=== PATIENT | female | born 1940 | race Caucasian/White ===

== ENCOUNTER 2019-09-19 12:18 | Emergency (ER) | payer MEDICARE ==
[~2019-09-19] VITALS: Ht 160 cm; Wt 84.8 kg
[~2019-09-19 12:18] MED LIST: ATORVASTATIN CA20 MG PO; BRILINTA90 MG PO; CYMBALTA30 MG PO; DEPAKOTE500 MG PO; DOXEPIN HCL25 MG PO; FUROSEMIDE40 MG PO; LITHIUM CARBON300 M2 PO; METOPROLOL SUCC25 MG PO
[2019-09-19 13:37] LABS: BASOPHILS # (AUTO) 0.1 (0.0-0.1); BASOPHILS % 0.8 % (0.0-1.0); EOSINOPHILS # (AUTO) 0.3 (0.0-0.4); EOSINOPHILS % 2.6 % (0.0-6.0); HEMATOCRIT 36.7 % (34.2-44.1); HEMOGLOBIN 11.7 g/dL (12.0-16.0); LYMPHOCYTES # (AUTO) 1.8 (1.0-3.2); MEAN CORPUSCULAR HGB CONC 31.9 g/dL (31-35); MEAN CORPUSCULAR VOLUME 90.8 fL (81-99); MONOCYTES % 8.2 % (4.4-11.3); NEUTROPHILS # (AUTO) 8.2 (2.1-6.9); NEUTROPHILS % 68.8 % (38.7-80.0); PLATELET COUNT 403 x10e3/uL (140-360); RED BLOOD COUNT 4.04 x10e6/uL (3.6-5.1); RED CELL DISTRIBUTION WIDTH 13.3 % (11.7-14.4)
[2019-09-19 13:49] LABS: INR 1.09; PROTHROMBIN TIME 14.4 seconds (11.9-14.5)
[2019-09-19 14:00] LABS: ALBUMIN 3.5 g/dL (3.5-5.0); ALBUMIN/GLOBULIN RATIO 0.8 (0.8-2.0); ANION GAP 15.6 mmol/L (8-16); CALCIUM 9.7 mg/dL (8.4-10.2); CREATININE, SERUM 1.68 mg/dL (0.57-1.11); MAGNESIUM 2.2 MG/DL (1.3-2.1); POTASSIUM 3.6 mmol/L (3.5-5.1)
[2019-09-19 14:00] LABS: BILIRUBIN,URINE NEGATIVE (NEGATIVE); CLARITY,URINE CLEAR (CLEAR); COLOR,URINE YELLOW (YELLOW); KETONES,URINE NEGATIVE (NEGATIVE); LEUKOCYTE ESTERASE ,URINE NEGATIVE (NEGATIVE); NITRITE,URINE NEGATIVE (NEGATIVE); PROTEIN,URINE DIPSTICK NEGATIVE (NEGATIVE); URINE UROBILINOGEN 0.2 mg/dL (0.2 - 1)
[2019-09-19 14:04] LABS: BACTERIA,URINE RARE /HPF; EPITHELIAL CELLS,URINE FEW /LPF; WBC,URINE (MAN) 0-5 /HPF (0-5)
[2019-09-19 14:05] LABS: HYALINE CASTS 0-1 (0-1)
--- NOTE | 2019-09-19 14:13 | Diagnostic Imaging Report ---
Chest, 1 view, 09/19/2019. History: Shortness of breath. Comparison: 09/01/2019. Findings: The cardiomediastinal silhouette and pulmonary vasculature are within mildly prominent. There is no focal consolidation or pleural effusion. There are no acute osseous or soft tissue abnormalities. Impression: Mild cardiomegaly and vascular congestion without significant change. Signed by: Sekou Aguero on 09/19/2019 2:11 PM
[2019-09-19] MEDS ORDERED: FUROSEMIDE INJ 10 MG/ML 4 ML VIAL IV ONE (15:00)
[2019-09-19 15:20] LABS: ANISOCYTOSIS SLIGHT; BAND NEUTROPHILS % (MANUAL) 3 %; HYPOCHROMASIA SLIGHT; LYMPHOCYTES % (MANUAL) 16 % (19-48); METAMYELOCYTES % (MANUAL) 1 % (0-0); MONOCYTES % (MANUAL) 9 % (3.4-9.0); MYELOCYTES % (MANUAL) 4 % (0-0); NEUTROPHILS % (MANUAL) 67 % (40-74); PLATELET ESTIMATE ADEQUATE; PLATELET MORPHOLOGY COMMENT NORMAL; RBC MORPHOLOGY COMMENT NORMAL
== END 2019-09-19 15:12 | disposition home or self-care (01) ==
LOC: ER 12:18
DX: R06.00 Dyspnea, unspecified (principal); I50.21 Acute systolic (congestive) heart failure; I50.1 Left ventricular failure, unspecified
CPT/HCPCS: 36415; 71045; 80053; 81001; 82550; 82553; 83735; 83880; 84484; 85025; 85610; 85730; 93005; 99284; J1940

== ENCOUNTER 2019-10-06 15:32 | Inpatient (IN) | payer MEDICARE ==
[~2019-10-06] VITALS: Ht 160 cm; Wt 83.9 kg
[2019-10-06] MEDS ORDERED: SODIUM CHLORIDE 0.9% 1000ML 1,000 ML IV STA (15:39)
[2019-10-06] MEDS ORDERED: ONDANSETRON HCL INJ 2MG/ML 2ML 2 MG/ML VIAL IV NR (15:45)
--- NOTE | 2019-10-06 15:45 | NUR ---
blood and urine along with blood cultures x2 walked to lab.
[2019-10-06 15:54] LABS: BASOPHILS # (AUTO) 0.1 (0.0-0.1); BASOPHILS % 0.5 % (0.0-1.0); EOSINOPHILS # (AUTO) 0.2 (0.0-0.4); EOSINOPHILS % 1.6 % (0.0-6.0); HEMATOCRIT 43.1 % (34.2-44.1); HEMOGLOBIN 13.7 g/dL (12.0-16.0); LYMPHOCYTES # (AUTO) 2.3 (1.0-3.2); LYMPHOCYTES % 19.9 % (18.0-39.1); MEAN CORPUSCULAR HEMOGLOBIN 29.1 pg (28-32); MEAN CORPUSCULAR HGB CONC 31.8 g/dL (31-35); MEAN CORPUSCULAR VOLUME 91.7 fL (81-99); MONOCYTES % 8.6 % (4.4-11.3); NEUTROPHILS # (AUTO) 7.7 (2.1-6.9); NEUTROPHILS % 68.1 % (38.7-80.0); PLATELET COUNT 292 x10e3/uL (140-360); RED CELL DISTRIBUTION WIDTH 14.2 % (11.7-14.4)
[2019-10-06 15:59] LABS: CLARITY,URINE CLEAR (CLEAR); COLOR,URINE YELLOW (YELLOW); LEUKOCYTE ESTERASE ,URINE NEGATIVE (NEGATIVE); NITRITE,URINE NEGATIVE (NEGATIVE)
[2019-10-06 16:00] LABS: BACTERIA,URINE RARE /HPF; BILIRUBIN,URINE NEGATIVE (NEGATIVE); EPITHELIAL CELLS,URINE FEW /LPF; KETONES,URINE NEGATIVE (NEGATIVE); PROTEIN,URINE DIPSTICK NEGATIVE (NEGATIVE); RBC,URINE 0-5 /HPF (0-5); URINE UROBILINOGEN 0.2 mg/dL (0.2 - 1); WBC,URINE (MAN) 0-5 /HPF (0-5)
[2019-10-06 16:01] LABS: AMPHETAMINES SCREEN,URINE NEGATIVE (NEGATIVE); BENZODIAZEPINES SCREEN,URINE NEGATIVE (NEGATIVE); PHENCYCLIDINE SCREEN,URINE NEGATIVE (NEGATIVE)
[2019-10-06 16:08] LABS: INR 0.95; PROTHROMBIN TIME 13.2 seconds (11.9-14.5)
[2019-10-06 16:09] LABS: PARTIAL THROMBOPLASTIN TIME 28.8 seconds (23.8-35.5)
[2019-10-06 16:18] LABS: ALBUMIN 4.2 g/dL (3.5-5.0); ALBUMIN/GLOBULIN RATIO 1.1 (0.8-2.0); ANION GAP 16.5 mmol/L (8-16); CALCIUM 10.3 mg/dL (8.4-10.2); CREATININE, SERUM 1.74 mg/dL (0.57-1.11); MAGNESIUM 2.3 MG/DL (1.3-2.1); POTASSIUM 3.5 mmol/L (3.5-5.1)
--- NOTE | 2019-10-06 16:23 | Diagnostic Imaging Report ---
Exam: Head CT without contrast History: Altered mental status Comparison studies: None Technique: Axial images were obtained from the skull base to the vertex. Coronal and sagittal images reconstructed from the axial data. Dose modulation, iterative reconstruction, and/or weight based adjustment of the mA/kV was utilized to reduce the radiation dose to as low as reasonably achievable. Radiation dose: Total DLP: 921.4 mGy*cm. Estimated effective dose: DLP x 0.015 Intravenous contrast: None Findings: Scalp: No abnormalities. Bones: No fractures, blastic or lytic lesions. Brain sulci: Mildly prominent. Ventricles: Moderate compensatory dilatation. No hydrocephalus. Extra-axial spaces: No masses, no fluid collection. Parenchyma: No abnormal densities. No masses, acute hemorrhage, acute or chronic vascular insults. Sellar/suprasellar region: No abnormalities. Craniocervical junction: Patent foramen magnum. No Chiari one malformation. Incidental findings: Bilateral intraocular lens replacements. Atherosclerotic calcifications in the carotid siphons. IMPRESSION: 1. No acute intracranial abnormalities. 2. Mild generalized parenchymal volume loss. Signed by: Dr. Kb Quinones M.D. on 10/06/2019 4:21 PM
--- NOTE | 2019-10-06 16:27 | NUR ---
PUREWICK PLACED ON PATIENT
--- NOTE | 2019-10-06 16:27 | Diagnostic Imaging Report ---
EXAMINATION: CHEST SINGLE (PORTABLE) INDICATION: ams COMPARISON: 09/19/2019 FINDINGS: AP view TUBES and LINES: None. LUNGS: Lungs are well inflated. There is no evidence of pneumonia or pulmonary edema. PLEURA: No pleural effusion or pneumothorax. HEART AND MEDIASTINUM: The cardiomediastinal silhouette is unremarkable. BONES AND SOFT TISSUES: No acute osseous lesion. Soft tissues are unremarkable. UPPER ABDOMEN: No free air under the diaphragm. IMPRESSION: No acute thoracic abnormality. Signed by: Gonzalo Lawson MD on 10/06/2019 4:25 PM
--- NOTE | 2019-10-06 17:22 | NUR ---
2ND LACTIC ACID DRAWN
[2019-10-06 17:26] LABS: SALICYLATE < 5.0 mg/dL (0-30)
[2019-10-06] MEDS: CEFTRIAXONE SOD 1 GM/NS 50 ML 50 ML IV SCH (17:50)
[2019-10-06] MEDS ORDERED: ONDANSETRON HCL INJ 2MG/ML 2ML 2 MG/ML VIAL IV PRN (18:00)
[2019-10-06] MEDS ORDERED: PANTOPRAZOLE SO40 MG PO (18:31)
[2019-10-06] MEDS ORDERED: ASPIR 8181 MG PO (18:43)
[2019-10-06] MEDS ORDERED: ASPIR 8181 MG (18:43)
[2019-10-06] MEDS ORDERED: ASPIRIN81 MG (18:43)
[2019-10-06] MEDS ORDERED: FISH OIL 1,0001 EAC2 PO (18:44)
[2019-10-06] MEDS ORDERED: MAGNESIUM OXID400 MG PO (18:44)
--- NOTE | 2019-10-06 18:48 | NUR ---
RECEIVED REPORT FROM HANSEL BOCANEGRA. 78 YO FEMALE PRESENTING WITH LACK OF APPETITE FOR THE PAST 3 WEEKS. VITAL SIGNS STABLE. LABS AND TREATMENTS REVIEWED. MED RECON DONE. PATIENT TO BE TRANSFERRED TO ROOM 288 AFTER SHIFT CHANGE.
--- NOTE | 2019-10-06 19:32 | NUR ---
Received report from AM nurse. Patient is coming from the ER. Patient has not arrived to floor yet.
[2019-10-06 19:55] VITALS: BP 116/57
--- NOTE | 2019-10-06 19:57 | NUR ---
Patient arrives to the floor via stretcher. Family at bedside.
[2019-10-06] MEDS: SODIUM CHLORIDE 0.9% 1000ML 1,000 ML IV SCH (20:04)
[2019-10-06 20:55] VITALS: BP 116/57
[2019-10-06 23:07] LABS: CREATINE KINASE MB 1.6 ng/mL (0-5.0)
[2019-10-06] MEDS: ONDANSETRON HCL INJ 2MG/ML 2ML 2 MG/ML VIAL IV PRN (23:13)
[2019-10-07] VITALS (8 sets, daily range): BP systolic 132–138; BP diastolic 57–99
--- NOTE | 2019-10-07 | NUR ---
Patient assessment and history completed. Patient AAOx3 with periods of confusion. Patient c/o of nausea and pain. Called MD and received orders. Meds given as ordered by MD. Continue monitor.
[2019-10-07] MEDS: MORPHINE SULFATE 2 MG/ML SYR 1ML IV PRN ×4 (01:55→17:10)
--- NOTE | 2019-10-07 05:14 | NUR ---
Patient resting quitly at this time. Continue monitor.
[2019-10-07] MEDS: CEFTRIAXONE SOD 1 GM/NS 50 ML 50 ML IV SCH ×2 (05:30→17:01)
[2019-10-07] MEDS: ONDANSETRON HCL INJ 2MG/ML 2ML 2 MG/ML VIAL IV PRN ×3 (05:55→17:10)
[2019-10-07 07:11] LABS: BASOPHILS % 0.5 % (0.0-1.0); EOSINOPHILS # (AUTO) 0.1 (0.0-0.4); EOSINOPHILS % 1.7 % (0.0-6.0); HEMATOCRIT 36.7 % (34.2-44.1); HEMOGLOBIN 11.3 g/dL (12.0-16.0); LYMPHOCYTES # (AUTO) 1.4 (1.0-3.2); LYMPHOCYTES % 17.1 % (18.0-39.1); MEAN CORPUSCULAR HEMOGLOBIN 28.6 pg (28-32); MEAN CORPUSCULAR HGB CONC 30.8 g/dL (31-35); MEAN CORPUSCULAR VOLUME 92.9 fL (81-99); MONOCYTES # (AUTO) 0.6 (0.2-0.8); MONOCYTES % 7.8 % (4.4-11.3); NEUTROPHILS # (AUTO) 5.8 (2.1-6.9); NEUTROPHILS % 71.9 % (38.7-80.0); PLATELET COUNT 207 x10e3/uL (140-360); RED BLOOD COUNT 3.95 x10e6/uL (3.6-5.1); RED CELL DISTRIBUTION WIDTH 14.2 % (11.7-14.4)
--- NOTE | 2019-10-07 07:25 | NUR ---
PATIENT IN BED RESTING WITH NO S/S OF DISTRESS. BRUISES TO RIGHT SHOULDER AND ARM, S/P FALL AT HOME. BED IN LOWER POSITION, CALL LIGHT AT REACH. INSTRUCTED TO CALL FOR ASSISTANCE NEEDED. AT BED SIDE.
[2019-10-07 07:42] LABS: CREATINE KINASE MB 1.5 ng/mL (0-5.0)
[2019-10-07 08:00] LABS: ALBUMIN 3.2 g/dL (3.5-5.0); ALBUMIN/GLOBULIN RATIO 1.1 (0.8-2.0); ANION GAP 13.4 mmol/L (8-16); CALCIUM 8.8 mg/dL (8.4-10.2); CHOL/HDL RATIO 3.3 (3.0-3.6); CREATININE, SERUM 1.27 mg/dL (0.57-1.11); POTASSIUM 3.4 mmol/L (3.5-5.1)
[2019-10-07] MEDS: SODIUM CHLORIDE 0.9% 1000ML 1,000 ML IV SCH (08:26)
[2019-10-07] MEDS ORDERED: ASPIRIN 81 MG ENTERIC COATED PO SCH (09:00)
--- NOTE | 2019-10-07 12:34 | NUR ---
PATIENT ASSISTED OUT OF BED TO RECLINING CHAIR. CALL LIGHT AT REACH.
[2019-10-07] MEDS: HYDROCODONE/APAP 10MG-325MG TAB PO PRN (13:08)
--- NOTE | 2019-10-07 15:29 | NUR ---
PATIENT C/O PAIN AND PAIN MEDICATION NOT DUE. HORTICULTURAL FARMER NOTIFIED, NEW ORDER RECEIVED AND IMPLEMENTED. PATIENT STATED "I AM FEELING BETTER". WILL CONTINUE TO MONITOR.
[2019-10-07] MEDS ORDERED: POTASSIUM CHLORIDE 20 MEQ TAB CR PO ONE (19:34)
[2019-10-07] MEDS: ATORVASTATIN 40 MG TAB PO SCH (20:13)
--- NOTE | 2019-10-07 20:13 | NUR ---
RECEIVED PT IN BED AOX2 .FAMILY AND SUPPLIER ENGINEER AT THE BEDSIDE .PT C/O DIFFICULTY SLEEPING .SUPPLIER ENGINEER TOLD TO CONSULT DR ARNETT AND GET THE ORDER FOR SLEEPING MEDICINE .PAGED DR ARNETT .FAMILY AT THE BEDSIDE.CALL LIGHT WITH IN REACH
[2019-10-07] MEDS ORDERED: LITHIUM CARBONATE ER 300 MG TAB PO SCH (21:00)
[2019-10-07] MEDS ORDERED: ATORVASTATIN 20 MG TAB PO SCH ×2 (21:00)
[2019-10-07] MEDS ORDERED: DOXEPIN HCL 10 MG CAP PO SCH (21:00)
[2019-10-07] MEDS ORDERED: DOXEPIN HCL 25 MG CAP PO SCH (21:00)
[2019-10-07] MEDS: DEPAKOTE DELAYED-RELEASE TAB 500 MG PO SCH (21:13)
[2019-10-07] MEDS: DULOXETINE HCL 30 MG DELAYED RELEASE PO SCH (21:13)
[2019-10-07] MEDS: METOPROLOL SUCCINATE 25 MG TAB XL PO SCH (21:14)
[2019-10-07] MEDS ORDERED: TRAZODONE HCL 50 MG TAB PO SCH (23:00)
[2019-10-08] VITALS (7 sets, daily range): BP systolic 110–145; BP diastolic 56–88
[2019-10-08] MEDS: HYDROCODONE/APAP 10MG-325MG TAB PO PRN ×3 (01:00→20:06)
[2019-10-08] MEDS: CEFTRIAXONE SOD 1 GM/NS 50 ML 50 ML IV SCH ×2 (05:09→17:32)
--- NOTE | 2019-10-08 06:12 | NUR ---
CONSULTED DR ARNETT AND GOT THE ORDER FOR TRAZODONE 25MG .MEDICATED WITH TRAZODONE .PT SLEPT ONLY FEW HRS .CALL LIGHT WITH IN REACH .CONTINUE TO MONITOR
[2019-10-08 06:20] LABS: CALCIUM 8.3 mg/dL (8.4-10.2); CREATININE, SERUM 1.18 mg/dL (0.57-1.11); MAGNESIUM 2.2 MG/DL (1.3-2.1)
[2019-10-08 06:31] LABS: THYROID STIMULATING HORMONE 1.663 uIU/mL (0.350-4.940)
--- NOTE | 2019-10-08 06:57 | NUR ---
BEDSIDE REPORT GIVEN TO THE ONCOMING NURSE
--- NOTE | 2019-10-08 07:15 | NUR ---
PATIENT IN BED RESTING WITH NO S/S OF DISTRESS. BRUISES TO RIGHT SHOULDER, TELEMETRY BOX IN PLACE. CALL LIGHT AT REACH.
[2019-10-08] MEDS ORDERED: [UNRECOGNIZED DRUG - OTHER] PO SCH (09:00)
[2019-10-08] MEDS ORDERED: OMEGA PO SCH (09:00)
[2019-10-08] MEDS ORDERED: FISH OIL PO SCH (09:00)
[2019-10-08] MEDS ORDERED: MAGNESIUM OXIDE 400 MG TAB PO SCH (09:00)
[2019-10-08] MEDS ORDERED: FATTY ACIDS PO SCH (09:00)
[2019-10-08] MEDS: OMEGA 3 POLYUNSAT FATTY ACIDS 1000 MG SOFTGEL PO SCH (09:06)
[2019-10-08] MEDS: ASPIRIN 81 MG CHEW TAB PO SCH (09:06)
[2019-10-08] MEDS: FUROSEMIDE 40 MG TAB PO SCH (09:06)
[2019-10-08] MEDS: TICAGRELOR 90 MG TABLET PO SCH ×2 (09:06→17:32)
[2019-10-08] MEDS: PANTOPRAZOLE SOD 40 MG TABEC PO SCH (09:06)
--- NOTE | 2019-10-08 11:21 | NUR ---
PATIENT SITTING UP IN BED TALKING TO FAMILY MEMBER VISITING. CALL LIGHT AT REACH.
[2019-10-08] MEDS ORDERED: QUETIAPINE FUMARATE 25 MG TAB PO PRN (12:30)
--- NOTE | 2019-10-08 14:18 | NUR ---
CALL TO ASHOK BROTHERS REGARDING LOC. STATES HE WILL SEE PT LATER. SENT TO R1.
[2019-10-08] MEDS: ONDANSETRON HCL INJ 2MG/ML 2ML 2 MG/ML VIAL IV PRN (14:20)
--- NOTE | 2019-10-08 15:24 | NUR ---
PATIENT AMBULATED IN HALLWAY WITH PHYSICAL THERAPY, NO DISTRESS NOTED. BACK TO CHAIR WITH CALL LIGHT AT REACH.
[2019-10-08] MEDS ORDERED: SODIUM CHLORIDE 0.9% 1000ML 1,000 ML IV SCH (17:45)
[2019-10-08] MEDS: POLYETHYLENE GLYCOL 3350 17 GM PACK PO SCH (18:47)
--- NOTE | 2019-10-08 19:09 | NUR ---
Received change of shift report from AM nurse. Walking rounds completed.
[2019-10-08] MEDS: DOCUSATE SODIUM 100 MG CAP PO SCH (20:04)
[2019-10-08] MEDS: DEPAKOTE DELAYED-RELEASE TAB 500 MG PO SCH (20:05)
[2019-10-08] MEDS: DULOXETINE HCL 30 MG DELAYED RELEASE PO SCH (20:05)
[2019-10-08] MEDS: ATORVASTATIN 40 MG TAB PO SCH (20:05)
--- NOTE | 2019-10-08 20:19 | Diagnostic Imaging Report ---
EXAMINATION: Right shoulder 2 views. CLINICAL HISTORY: Status post fall 3 weeks ago. COMPARISON: None. . Discussion: Mild osteopenia. Likely subacute mildly displaced fracture of the proximal right humerus, with fracture lines involving the surgical neck and greater tuberosity. The humerus remains aligned with the glenoid. There is no evidence of a.c. separation. The glenohumeral joint is within normal limits. Soft tissues are grossly unremarkable. Visualized portions of the right lung are clear. IMPRESSION: 1. 3 part, likely subacute fracture of the proximal right humerus. The humerus remains aligned with the glenoid. Signed by: Dr. Pardeep Carrera M.D. on 10/08/2019 8:16 PM
--- NOTE | 2019-10-08 20:20 | Diagnostic Imaging Report ---
Exam: Right humerus, 2 views History: Status post fall 3 weeks ago Comparison: None. Findings: There is decreased bone mineralization. Please see dedicated shoulder films for description of 3 part likely subacute fracture of the proximal humerus. No other acute, displaced fracture or dislocation. Humerus remains alignment with the glenoid. No abnormal soft tissue calcification or soft tissue defect. No soft tissue swelling. Impression: 1. Three-part, likely subacute fracture of the proximal humerus. No other acute, displaced fracture or dislocation. Signed by: Dr. Pardeep Carrera M.D. on 10/08/2019 8:18 PM
[2019-10-08] MEDS: METOPROLOL SUCCINATE 25 MG TAB XL PO SCH (20:26)
--- NOTE | 2019-10-08 20:42 | Consultation ---
DATE OF CONSULTATION: 10/08/2019 Psychiatric Consultation REASON FOR CONSULTATION: To evaluate the patient's psychosis, insomnia, and history of bipolar. HISTORY OF PRESENT ILLNESS: The patient is a 78-year-old female, admitted to the hospital for CKD. Psychiatric consultation is called to evaluate the patient's mood and psychosis. As per the medical record, the patient has history of diabetes type 2, hypertension, bipolar, . She fell on September 14, 2019, and subsequently has been confused intermittently in the hospital. Upon evaluation today, the patient is found to be in the room with the son and later joined by the . The patient seen ambulatory with PT in the hallway. She is oriented to self, place, time, and year. She is not confused at this time. She denies any depression. Reports some anxiety. She reported having issue with sleep for the last few days and her appetite is about 25% as per family members. She claims that her anxiety is due to poor sleep. She denies feeling hopeless or helpless. She denies any suicidal or homicidal ideation. She denies any hallucination. She is not paranoid at this time. She is not agitated or combative. As per family member, she has been taking lithium, Depakote, and doxepin for many years. The patient is almost at baseline. She had an MO on September 01 and subsequently stent placed. Family also reports the patient had shock treatment in the past and inpatient psychiatry hospitalization. She followed up with , outpatient. At home, she takes again lithium, Depakote, doxepin, and Cymbalta. PAST PSYCHIATRIC HISTORY: The patient reports history of bipolar. She denies past suicide attempts. She denies alcohol or drug use. FAMILY HISTORY: Denies. SOCIAL HISTORY: The patient lives with her . MENTAL STATUS EXAM: The patient is an elderly female. She is oriented to situation, self, place, and year. Her mood is anxious. Affect is blunt. Psychomotor state is passive. Denies suicidal or homicidal ideation. Denies any hallucination. Thought process is concrete. No delusion or paranoia elicited. Insight and judgment are fair. Memory appears to be grossly intact. CURRENT MEDICATIONS: 1. Fish oil. 2. Pantoprazole. 3. Lasix. 4. Aspirin. 5. . 6. Carmel. 7. Metoprolol. 8. Cymbalta 60 mg p.o. at bedtime. 9. Depakote 500 mg p.o. at bedtime. 10. Atorvastatin. 11. Morphine. 12. Ondansetron. 13. Trazodone. CURRENT LABS: WBC 8.06, RBC 3.95, hemoglobin 11.3, hematocrit 36.7, and platelets 207. Chemistry; sodium 141, potassium 4.0, chloride 110, CO2 of 27, BUN 12, creatinine 1.18, AST 17, and ALT 12. ASSESSMENT: Bipolar I disorder, recurrent, depressed, mild to moderate. PLAN: 1. Discontinue doxepin. 2. Discontinue lithium. 3. Continue with Depakote 500 mg p.o. at bedtime. 4. Continue Cymbalta 60 mg p.o. at bedtime. 5. Discontinue trazodone 25 mg p.o. at bedtime. 6. Trazodone 50 mg p.o. at bedtime p.r.n. for insomnia. 7. Add Seroquel 25 mg p.o. at bedtime. 8. Add Seroquel 25 mg p.o. every 6 hours p.r.n. 9. Monitor for mood. 10. Consult family members, they agree with plan at this time. 11. Supportive therapy. Thank you for this consultation. Dictated by Sol Lira PA-C MD JENNIFER DavisonV/TANIA /[id number]
[2019-10-08] MEDS ORDERED: TRAZODONE HCL 50 MG TAB PO PRN (21:00)
[2019-10-08] MEDS ORDERED: QUETIAPINE FUMARATE 25 MG TAB PO SCH (21:00)
[2019-10-08] MEDS ORDERED: TRAZODONE HCL 50 MG TAB PO SCH (21:00)
[2019-10-09] VITALS (9 sets, daily range): BP systolic 103–121; BP diastolic 45–84
--- NOTE | 2019-10-09 | NUR ---
Patient AAO1. Daughter at bedside. IV to left arm intact. Tube feed at 50 with 40cc residuals. Continue monitor. Patient turned q 2 hours. HOB elevated 40 degree. No c/o pain at this time.
--- NOTE | 2019-10-09 00:48 | Consultation ---
DATE OF CONSULTATION: 10/08/2019 Cardiology Consultation REASON FOR CONSULTATION: Coronary artery disease. HISTORY OF PRESENT ILLNESS: This is a 78-year-old woman, history of prior myocardial infarction, coronary artery disease, status post percutaneous coronary intervention to the left anterior descending coronary with residual disease in the right coronary artery, hypertension, hyperlipidemia, and psychiatric disorders, who was brought by family members due to poor oral intake, confusion and generalized tremors. She denies any chest pain or shortness of breath. She otherwise feeling better. Denies any ongoing cardiac symptoms. REVIEW OF SYSTEMS: A 12-point review of system was conducted, is negative except as above in the HPI. PAST MEDICAL HISTORY: As stated above in the HPI. PAST SURGICAL HISTORY: Percutaneous coronary intervention. PAST FAMILY HISTORY: Noncontributory to coronary illness. SOCIAL HISTORY: No illicit drug, alcohol, or tobacco use. ALLERGIES: BACTRIM. PHYSICAL EXAMINATION: VITAL SIGNS: Temperature is 96.9, heart rate is 63, respirations are 15, blood pressure is 115/67, ox saturation 94% on room air. GENERAL: Well-appearing, well-built, no apparent distress. Alert and oriented x3. HEAD: Normocephalic, atraumatic. Eyes, the extraocular muscles are intact. Conjunctivae clear. NECK: No JVD. No bruits. CARDIOVASCULAR: She has regular rate and rhythm. No murmurs. LUNGS: Clear to auscultation. ABDOMEN: Soft, nontender, nondistended. EXTREMITIES: No clubbing, cyanosis, or edema. VASCULAR: 2+ pulses. LABORATORY DATA: Reviewed. IMPRESSION: 1. Confusion. 2. Bipolar disorder. 3. Coronary artery disease. 4. Chronic systolic congestive heart failure. RECOMMENDATIONS: Continue current cardiovascular medications including Lasix, metoprolol, aspirin and atorvastatin. We will resume clopidogrel. The patient appears compensated from a cardiovascular standpoint. Continue workup for her confusion and bipolar disorder per primary team. Trent Birmingham DO BM/MODL /[id number]
--- NOTE | 2019-10-09 05:00 | NUR ---
Patient resting quitly at this time. Puric in place. Patient with small amt. of urine.
[2019-10-09] MEDS: CEFTRIAXONE SOD 1 GM/NS 50 ML 50 ML IV SCH ×2 (05:15→17:45)
[2019-10-09 05:37] LABS: BASOPHILS % 0.3 % (0.0-1.0); EOSINOPHILS # (AUTO) 0.4 (0.0-0.4); EOSINOPHILS % 4.1 % (0.0-6.0); HEMATOCRIT 34.1 % (34.2-44.1); HEMOGLOBIN 10.6 g/dL (12.0-16.0); LYMPHOCYTES # (AUTO) 1.6 (1.0-3.2); LYMPHOCYTES % 17.4 % (18.0-39.1); MEAN CORPUSCULAR HEMOGLOBIN 29.7 pg (28-32); MEAN CORPUSCULAR HGB CONC 31.1 g/dL (31-35); MEAN CORPUSCULAR VOLUME 95.5 fL (81-99); MONOCYTES # (AUTO) 0.8 (0.2-0.8); MONOCYTES % 8.7 % (4.4-11.3); NEUTROPHILS # (AUTO) 6.1 (2.1-6.9); NEUTROPHILS % 68.6 % (38.7-80.0); PLATELET COUNT 164 x10e3/uL (140-360); RED BLOOD COUNT 3.57 x10e6/uL (3.6-5.1); RED CELL DISTRIBUTION WIDTH 14.7 % (11.7-14.4)
--- NOTE | 2019-10-09 05:57 | Diagnostic Imaging Report ---
Exam: Abdominal film Clinical History: Last BM 5 days ago, concern for ileus Comparison: None. DISCUSSION: The bowel gas pattern shows no dilated, air-filled loops of bowel. Gas and fecal material is noted throughout the large bowel. No chin pneumoperitoneum, mass effect, or organomegaly. Regional skeletal structures are intact with multilevel degenerative disc changes of the lumbar spine. Indistinct left L4 pedicle. IMPRESSION: Nonobstructive bowel gas pattern. Large amount of fecal material within the large bowel in keeping with constipation. Indistinct left L4 pedicle may relate to degenerative change. However, a lytic osseous lesion may have a similar appearance, and CT or MRI of the lumbar spine is suggested for further evaluation. Signed by: Dr. Kb Salazar M.D. on 10/09/2019 5:55 AM
[2019-10-09 06:09] LABS: ANION GAP 9.5 mmol/L (8-16); CALCIUM 8.8 mg/dL (8.4-10.2); CREATININE, SERUM 1.35 mg/dL (0.57-1.11); POTASSIUM 3.5 mmol/L (3.5-5.1)
--- NOTE | 2019-10-09 07:00 | NUR ---
BEDSIDE SHIFT REPORT RECEIVED FROM THE POLICY AND PLANNING MANAGER RN. PT AAOX4. EDUCATED PT ABOUT FALL PRECAUTIONS. CALL LIGHT WITH IN EASY REACH. INSTRUCTED PT TO USE CALL LIGHT FOR ALL THE NEEDS. PT VERBALIZED UNDERSTANDING. BED IS LOW AND LOCKED. SIDE RAILS X2. PT DENIES NEEDS AT THIS TIME.
[2019-10-09] MEDS ORDERED: POTASSIUM CHLORIDE 20 MEQ TAB CR PO ONE (08:45)
[2019-10-09] MEDS: ASPIRIN 81 MG CHEW TAB PO SCH (09:31)
[2019-10-09] MEDS: DOCUSATE SODIUM 100 MG CAP PO SCH ×3 (09:31→20:58)
[2019-10-09] MEDS: OMEGA 3 POLYUNSAT FATTY ACIDS 1000 MG SOFTGEL PO SCH (09:32)
[2019-10-09] MEDS: PANTOPRAZOLE SOD 40 MG TABEC PO SCH (09:32)
[2019-10-09] MEDS: POLYETHYLENE GLYCOL 3350 17 GM PACK PO SCH ×2 (09:47→16:00)
[2019-10-09] MEDS: FUROSEMIDE 40 MG TAB PO SCH (09:47)
[2019-10-09] MEDS: CLOPIDOGREL BISULFATE 75 MG TAB PO SCH (09:47)
--- NOTE | 2019-10-09 11:56 | Progress Note ---
DATE: 10/09/2019 Cardiology Progress Note SUBJECTIVE: The patient reports improvement in her mental status. No chest pain or shortness of breath. OBJECTIVE: VITAL SIGNS: Temperature is 98.2, heart rate 69, respirations are 20, blood pressure is 117/60, and oxygen saturation 97% on room air. GENERAL: Well-appearing, in no apparent distress. CARDIOVASCULAR: Regular rate and rhythm. LUNGS: Clear to auscultation. ABDOMEN: Soft, nontender, and nondistended. EXTREMITIES: No clubbing, cyanosis, or edema. LABORATORY DATA: Reviewed. Hemoglobin is 10. Creatinine is 1.35. Troponins negative x3. BNP mildly elevated at 1010. IMPRESSION: 1. Confusion. 2. Bipolar disorder and psychiatric disease. 3. Coronary artery disease, status post percutaneous coronary intervention. 4. Chronic systolic congestive heart failure. RECOMMENDATION: There appears to be no acute cardiovascular condition ongoing at this point in time. Continue metoprolol, Lasix, statin, aspirin, and Plavix. She appears compensated from a cardiovascular standpoint. Her KANDIS inhibitor has been on hold due to acute kidney injury. No further cardiac workup is needed at this point in time and she is stable for discharge from a cardiovascular standpoint with outpatient followup. Trent Birmingham DO BM/MODL /[id number]
--- NOTE | 2019-10-09 14:31 | Progress Note ---
DATE: 10/09/2019 Psychiatric Progress Note SUBJECTIVE: The patient evaluated and events noted. Upon evaluation today, the patient is found to be in the room. She is alert, awake, and oriented to situation. She is calm and cooperative. She reports feeling anxious about what is going to happen after she is discharged, but denies any depression. She reports feeling better and claims she slept yesterday. She took Seroquel last night. Denies any side effects from medication. Denies any hallucination. She denies any suicidal or homicidal ideation. She is not confused at this time. She is asked to increase the medication to help her sleep little bit more. ASSESSMENT: Bipolar I disorder, recurrent, depressed, [id number]. PLAN: 1. To continue Cymbalta 60 mg p.o. at bedtime. 2. Continue trazodone p.r.n. 3. Continue Seroquel p.r.n. 4. Increase Seroquel to 50 mg p.o. at bedtime. 5. Continue with Depakote 500 mg p.o. at bedtime. 6. Monitor for mood. 7. Supportive therapy. Thank you for this consultation. Dictated by Sol Lira PA-C Mateo Moe MD QTV/MODL /[id number]
[2019-10-09] MEDS: HYDROCODONE/APAP 10MG-325MG TAB PO PRN ×2 (15:27→21:55)
[2019-10-09] MEDS: ONDANSETRON HCL INJ 2MG/ML 2ML 2 MG/ML VIAL IV PRN (17:52)
--- NOTE | 2019-10-09 19:00 | NUR ---
BEDSIDE SHIFT REPORT GIVEN TO THE CHIEF MINISTER RN. PT DENIED FURTHER NEEDS.
--- NOTE | 2019-10-09 20:57 | NUR ---
Patient received warm prune juice to help with BM.
[2019-10-09] MEDS: DULOXETINE HCL 30 MG DELAYED RELEASE PO SCH (20:58)
[2019-10-09] MEDS: ATORVASTATIN 40 MG TAB PO SCH (20:58)
[2019-10-09] MEDS: METOPROLOL SUCCINATE 25 MG TAB XL PO SCH (21:00)
[2019-10-09] MEDS ORDERED: DEPAKOTE DELAYED-RELEASE TAB 500 MG PO SCH (21:00)
[2019-10-09] MEDS ORDERED: QUETIAPINE FUMARATE 25 MG TAB PO SCH (21:00)
[2019-10-10] VITALS: BP 120/58
[2019-10-10 04:00] VITALS: BP 103/65
[2019-10-10] MEDS: CEFTRIAXONE SOD 1 GM/NS 50 ML 50 ML IV SCH (05:30)
--- NOTE | 2019-10-10 06:58 | NUR ---
Received patient lying in bed with eyes open. respiration even and unlabored without SOB. Call light in reach.
[2019-10-10 07:42] VITALS: BP 116/55
[2019-10-10] MEDS ORDERED: POTASSIUM CHLORIDE 20 MEQ TAB CR PO SCH (09:00)
[2019-10-10] MEDS: DOCUSATE SODIUM 100 MG CAP PO SCH (09:17)
[2019-10-10] MEDS: CLOPIDOGREL BISULFATE 75 MG TAB PO SCH (09:17)
[2019-10-10] MEDS: ASPIRIN 81 MG CHEW TAB PO SCH (09:17)
[2019-10-10] MEDS: OMEGA 3 POLYUNSAT FATTY ACIDS 1000 MG SOFTGEL PO SCH (09:18)
[2019-10-10] MEDS: PANTOPRAZOLE SOD 40 MG TABEC PO SCH (09:18)
[2019-10-10 09:24] LABS: BASOPHILS # (AUTO) 0.1 (0.0-0.1); BASOPHILS % 0.7 % (0.0-1.0); EOSINOPHILS # (AUTO) 0.3 (0.0-0.4); EOSINOPHILS % 3.9 % (0.0-6.0); HEMATOCRIT 38.6 % (34.2-44.1); HEMOGLOBIN 11.8 g/dL (12.0-16.0); LYMPHOCYTES # (AUTO) 1.6 (1.0-3.2); LYMPHOCYTES % 19.2 % (18.0-39.1); MEAN CORPUSCULAR HEMOGLOBIN 29.5 pg (28-32); MEAN CORPUSCULAR HGB CONC 30.6 g/dL (31-35); MEAN CORPUSCULAR VOLUME 96.5 fL (81-99); MONOCYTES # (AUTO) 0.5 (0.2-0.8); MONOCYTES % 5.5 % (4.4-11.3); NEUTROPHILS # (AUTO) 5.7 (2.1-6.9); NEUTROPHILS % 69.1 % (38.7-80.0); PLATELET COUNT 208 x10e3/uL (140-360); RED CELL DISTRIBUTION WIDTH 14.9 % (11.7-14.4)
[2019-10-10] MEDS: FUROSEMIDE 40 MG TAB PO SCH (09:27)
[2019-10-10] MEDS: POLYETHYLENE GLYCOL 3350 17 GM PACK PO SCH (09:27)
[2019-10-10 09:42] LABS: ANION GAP 11.8 mmol/L (8-16); CREATININE, SERUM 1.36 mg/dL (0.57-1.11); MAGNESIUM 1.8 MG/DL (1.3-2.1); PHOSPHORUS 3.1 MG/DL (2.3-4.7); POTASSIUM 3.8 mmol/L (3.5-5.1)
[2019-10-10 09:59] VITALS: BP 116/55
[2019-10-10] MEDS ORDERED: LACTULOSE SYRUP 20 GM/30 ML UDC PO ONE (10:00)
--- NOTE | 2019-10-10 13:47 | NUR ---
Nutrition Intervention Note RD Recommendation(s) for Physician: -Continue current diet per MD. -Recommend Glucerna supplement BID. -Encouraged intake as tolerated. -The patient meets criteria for MILD protein-calorie malnutrition. Plan of Care: RD following, monitoring for tolerance and adequacy. Glucerna BID. Education provided. Nutrition reason for involvement: (MD Consult -weight loss, ADA diet) RD Assessment 10/10: 78 YOF admitted for CKD with PMH listed above. Pt was seen resting in her chair with at bedside. The pt reported that she has had a poor appetite for about 1 month and her UBW is 202 lbs suggesting the pt has had an 8.4% weight loss which is significant. The pt reported no N/V but that she was constipated, pt is on many stool softeners and was given an enema today. Possible d/c after enema per MDR rounds. Pt was open to trying the Glucerna supplement and encouraged intake as tolerate.d. Pt and also wanted education regarding DM diet, provided this for them. They had no other questions or concerns. Chart reviewed. Labs and meds reviewed. Will continue to monitor. Principal Problems/Diagnoses: CKD, confusion PMH: The patient reports history of bipolar, DM, CKD GI: Abd: soft, large, LBM: not recorded Skin: no PU recorded Labs: 10/10: Creat 1.36, Gluc 195 Meds: miralax, lasix, K-DURgiven, fish oil, protonix, colace, abx, depakote, Lipitor, zofran, trazodonw, seroquel Ht: 63 in Wt: 185 lb BMI: 32.8 kg/m2 IBW: 115 lb Malnutrition Evaluation (10/10) The patient meets criteria for MILD protein-calorie malnutrition. Energy intake: <50% of estimated energy requirements for >1 month Weight loss: >5% in 1 month (Acute) Fat loss: none Muscle loss: none Nutrition Prescription (Diet Order): 1800 ADA diet Estimated Nutritional Needs: Calories: 1144-1300kcal/day (22-25 kcal/kg/day) Weight used : IBW Protein : 52-78protein/day (1-1.5 gram/kg/day ) Weight used: IBW Diet Adequacy: Not meeting calorie needs, Not meeting protein needs Diet Education Needs Assessment: Diet education indicated and patient agreeable. Nutrition Care Level: mod Nutrition Diagnosis: acute protein calorie malnutrition related to medical condition as evidenced by the pt reporting weight loss and poor appetite as well as need for ONS to help meet calorie and protein needs. Goal: Patient will meet 75-100% of estimated needs by follow up Progress: ( N/A) Interventions: -( carb-modified diet, Commercial beverage, Prescription medications, Collaboration with other providers Monitoring/Evaluation: -Total energy intake, Total protein intake Prescription medication, Modified diet, Liquid supplement, Weight change,Level of knowledge Signed: Luz Parra RD, LD Learner(s): pt and Barriers: none Cultural/Language Modifications: none Readiness: acceptance Method: discussion, handout Topics: DM Diet- food label, foods recommended and not recommended, protein and carb together, meal planning Understanding/Compliance: verbalized understanding, anticipate good compliance
--- NOTE | 2019-10-10 14:02 | Progress Note ---
DATE: 10/10/2019 Psychiatric Progress Note SUBJECTIVE: The patient evaluated and events noted. The patient is in the room. She is calm and cooperative. The patient states she is doing better. She denies any depression. She denies anxiety. She denies any hallucination. She denies any problems with medication. states that she has been doing much better and wanted to follow up with us in the outpatient setting. ASSESSMENT: Bipolar I disorder, recurrent, depressed, [id number]. PLAN: 1. To continue with Seroquel 50 mg p.o. at bedtime. 2. Continue with Cymbalta 60 mg p.o. at bedtime. 3. Discontinue Depakote. 4. Monitor for mood. 5. Supportive therapy. Thank you for this consultation. Dictated by Sol Lira PA-C Mateo Moe MD QTV/MODL /[id number]
[2019-10-10] MEDS ORDERED: DEPAKOTE500 MG PO (14:10)
[2019-10-10] MEDS ORDERED: SEROQUEL25 MG PO (14:10)
[2019-10-10] MEDS ORDERED: COLACE100 MG PO (14:10)
[2019-10-10] MEDS ORDERED: MIRALAX17 GM PO (14:10)
--- NOTE | 2019-10-10 15:14 | NUR ---
PIV to left AC discontinued, catheter tip intact, no bleeding noted. Discharge education given. Verbalized understanding. Transported via wheelchair with all personal belongings taken.
--- NOTE | 2019-10-11 13:38 | Discharge Summary ---
CHIEF COMPLAINT: Changed mental status. HISTORY OF PRESENT ILLNESS: Ms. Henriquez is a 78-year-old female who was admitted due to altered mental status, shaking, decreased appetite for one week, anxiety, and insomnia. She was confused since her fall on 09/14/2019 with major anxiety. PAST MEDICAL HISTORY: She has past medical history of type 2 diabetes mellitus, hypertension, bipolar disorder, hyperlipidemia, myocardial infarction on 09/01/2019, fall 09/14/2019, right shoulder injury due to the fall, electric shock treatments and on psychiatric medications since 1988, and has had numerous psychiatric inpatient stays. PAST SURGICAL HISTORY: Heart catheterization on September 01, 2019 with two stents placed by Dr. Sandoval. Bilateral cataract removal on 05/19/1981. Right breast lumpectomy on 12/12/2001. Lap band, total knee arthroplasty bilaterally, ureteral stent for defect. PAST FAMILY HISTORY: Mother had diabetes mellitus and breast cancer. Father had lung cancer. He was a smoker. Maternal aunts and uncles had heart problems. SOCIAL HISTORY: The patient was a smoker, smoked two-pack per day for 6-7 years. ALLERGIES: SULFA AND TRIMETHOPRIM. ADMITTING DIAGNOSES: 1. Altered mental status, severe anxiety, bipolar disorder, extensive psychiatric history, insomnia. 2. Unintentional weight loss of 15 pounds in less than a month, inadequate oral intake, likely due to altered mental status. 3. Coronary artery disease, myocardial infarction, 09/01/2019, history of left heart catheterization with two cardiac stents on 09/01/2019. 4. Fall on 09/14/2019 with right shoulder injury. 5. Sepsis, present on arrival, with leukocytosis. 6. Obesity with BMI of 32.76. 7. Controlled type 2 diabetes mellitus. 8. Mild hypokalemia. 9. Mild hypermagnesemia. DISCHARGE DIAGNOSES: 1. Altered mental status from baseline, severe anxiety, bipolar disorder, and insomnia. 2. Unintentional weight loss of 15 pounds in less than a month, likely due to altered mental status. 3. Coronary artery disease, myocardial infarction with percutaneous coronary intervention with two cardiac stents on 09/01/2019. 4. Chronic systolic congestive heart failure. 5. Controlled hypertension with chronic systolic congestive heart failure and chronic kidney disease stage 3. 6. Controlled type 2 diabetes mellitus with chronic kidney disease stage 3. 7. Acute kidney injury on chronic kidney disease stage 3. 8. Hyperlipidemia. 9. Obesity with BMI of 32.76. 10. Subacute proximal right humerus fracture. 11. Fecal impaction. LABORATORY DATA: Initial labs had shown sodium 142, potassium 3.4 prior to that 3.5, chloride 106, CO2 of 26, BUN 18, creatinine 1.27 and prior to that 1.74, EGFR 41 and prior to that 28, and glucose 147. WBCs 8.06 and prior to that, 11.33, hemoglobin 11.3, hematocrit 36.7, and platelets 207. Total protein 6.2, albumin 3.2. Lactic acid 0.9 and prior to that 2.1. Troponin I 0.031 and 0.039. Urinalysis was negative. UDS was positive for opiates and Tylenol. Urine culture and sensitivity and blood culture and sensitivity showed no growth. Her chest x-ray on 10/[address] of the brain was negative. ECG showed nonspecific ST and T-wave abnormalities. Ammonia level was 33, magnesium 2.3. Today on the day of discharge, WBCs 8.19, hemoglobin 11.8, hematocrit 38.6, and platelets 208. Sodium 139, potassium 3.8, chloride 107, CO2 of 24, BUN 14, creatinine 1.36, estimated GFR 38, glucose 195, calcium 9, phosphorus 3.1, and magnesium 1.8. B type nitrate peptide on 10/08 was 1010.8. Lactic acid on 10/06 was 0.9. On 10/08, shoulder and humerus x-ray were done which showed a subacute right proximal humerus fracture. On 10/09, due to her complaints of constipation, not having a bowel movement for about six days. KUB showed nonobstructive bowel gas pattern. Large amount of fecal material within the large bowel in keeping with constipation. There was no small bowel obstruction and no ileus. Consults included: 1. Dr. Moe with Psychiatry. 2. Dr. Trent Birmingham with Cardiology. 3. Dr. Maynor Lira, the physician's welder assistant with Dr. Moe followed her during her stay. Efforts are being made to wean off her Depakote and continue with the Seroquel and Cymbalta. The patient was on doxepin and lithium at home. These will be discontinued. The patient will be on Seroquel 50 mg p.o. at bedtime, Cymbalta 60 mg p.o. at bedtime, and Depakote DR 250 mg p.o. at bedtime. We will also send her home on Colace and MiraLAX due to her constipation. The patient was gradually able to sleep more, had night slept about 6 hours at night, Plavix was added by Cardiology. She will continue on dual anti-platelet therapy with aspirin and Plavix. Continue metoprolol and Lasix at home. Hemoglobin A1c had been 7.4%. The patient will follow up with her orthopedic doctor, whom she has already been seeing. Continue ADA diet. Fecal disimpaction by HANSEL Alfaro today. ACTIVITY: Level as tolerated. FOLLOWUP: Follow up with Dr. Moe and her PCP Dr. Javon Thorpe in 1-2 weeks. Dictated by Rachid Segal NP Carlos Joel MD H[facility]/TANIA /[id number]
== END 2019-10-10 15:32 | disposition home health service (06) | DRG 885 ==
LOC: ER 15:32 → ERHOLD 18:05 → MED/SURG3 20:00 → OBSVTOIN 10-08 17:52
PROVIDERS: ADMIT Internal Medicine; ATTEND Internal Medicine
DX: F31.32 Bipolar disorder, current episode depressed, moderate (principal); A41.9 Sepsis, unspecified organism; S42.201A Unspecified fracture of upper end of right humerus, initial encounter for closed fracture; I13.0 Hypertensive heart and chronic kidney disease with heart failure and stage 1 through stage 4 chronic kidney disease, or unspecified chronic kidney disease; I50.22 Chronic systolic (congestive) heart failure; N17.9 Acute kidney failure, unspecified; E87.2 Acidosis; E44.1 Mild protein-calorie malnutrition; F41.9 Anxiety disorder, unspecified; I25.10 Atherosclerotic heart disease of native coronary artery without angina pectoris; E11.22 Type 2 diabetes mellitus with diabetic chronic kidney disease; N18.3 Chronic kidney disease, stage 3 (moderate); E78.5 Hyperlipidemia, unspecified; G47.00 Insomnia, unspecified; K59.00 Constipation, unspecified; R63.4 Abnormal weight loss; Z68.32 Body mass index [BMI] 32.0-32.9, adult; E86.0 Dehydration; E87.6 Hypokalemia; E83.41 Hypermagnesemia; R26.9 Unspecified abnormalities of gait and mobility; W19.XXXA Unspecified fall, initial encounter; Y92.009 Unspecified place in unspecified non-institutional (private) residence as the place of occurrence of the external cause; Z98.84 Bariatric surgery status; Z95.5 Presence of coronary angioplasty implant and graft; Z87.891 Personal history of nicotine dependence; I25.2 Old myocardial infarction; Z79.82 Long term (current) use of aspirin
CPT/HCPCS: 36415; 70450; 71045; 74018; 80048; 80053; 80061; 80164; 80307; 80320; 80329; 81001; 82140; 82550; 82553; 83036; 83605; 83735; 83880; 84100; 84443; 84484; 85025; 85610; 85730; 87040; 87086; 93005; 97139; 99284; G0378; J0696; J2270; J2405; J7030

== ENCOUNTER 2022-06-19 04:30 | Emergency (ER) | payer MEDICARE, OTHER ==
[~2022-06-19] VITALS: Ht 160 cm; Wt 83.9 kg
[~2022-06-19 04:30] MED LIST changes: +ASPIR 8181 MG; +ASPIR 8181 MG PO; +ASPIRIN81 MG; +COLACE100 MG PO; +FISH OIL 1,0001 EAC2 PO; +MAGNESIUM OXID400 MG PO; +MIRALAX17 GM PO; +PANTOPRAZOLE SO40 MG PO; +SEROQUEL25 MG PO
[2022-06-19] MEDS ORDERED: ONDANSETRON HCL INJ 2MG/ML 2ML 2 MG/ML VIAL IV STA (04:44)
[2022-06-19 05:17] LABS: BASOPHILS % 0.6 % (0.0-1.0); EOSINOPHILS # (AUTO) 0.1 (0.0-0.4); HEMATOCRIT 37.2 % (34.2-44.1); HEMOGLOBIN 11.9 g/dL (12.0-16.0); LYMPHOCYTES # (AUTO) 2.6 (1.0-3.2); LYMPHOCYTES % 38.9 % (18.0-39.1); MEAN CORPUSCULAR HEMOGLOBIN 31.2 pg (28-32); MEAN CORPUSCULAR VOLUME 97.6 fL (81-99); MONOCYTES # (AUTO) 0.7 (0.2-0.8); MONOCYTES % 10.1 % (4.4-11.3); NEUTROPHILS % 46.4 % (38.7-80.0); PLATELET COUNT 194 x10e3/uL (140-360); RED BLOOD COUNT 3.81 x10e6/uL (3.6-5.1); RED CELL DISTRIBUTION WIDTH 12.8 % (11.7-14.4)
[2022-06-19] MEDS ORDERED: SODIUM CHLORIDE 0.9% 500ML 500 ML IV ONE (05:30)
[2022-06-19 05:46] LABS: INR 0.92; PROTHROMBIN TIME 13.2 seconds (11.9-14.5)
[2022-06-19 05:47] LABS: PARTIAL THROMBOPLASTIN TIME 28.1 seconds (23.8-35.5)
[2022-06-19 05:51] LABS: ALBUMIN 3.6 g/dL (3.5-5.0); ALBUMIN/GLOBULIN RATIO 1.2 (0.8-2.0); ANION GAP 16.1 mmol/L (8-16); CALCIUM 8.8 mg/dL (8.4-10.2); CREATININE, SERUM 1.3 mg/dL (0.57-1.11); POTASSIUM 4.1 mmol/L (3.5-5.1)
[2022-06-19 05:57] LABS: CREATINE KINASE MB 0.7 ng/mL (0-5.0)
[2022-06-19] MEDS ORDERED: IOPAMIDOL 370 MG/ML 100 ML INFUS..BTL INJ ONE (05:57)
== END 2022-06-19 06:40 | disposition other institution (70) ==
LOC: ER 04:32
DX: S06.6X0A Traumatic subarachnoid hemorrhage without loss of consciousness, initial encounter (principal); R55 Syncope and collapse; W01.0XXA Fall on same level from slipping, tripping and stumbling without subsequent striking against object, initial encounter; Y93.01 Activity, walking, marching and hiking; Y92.89 Other specified places as the place of occurrence of the external cause; I12.9 Hypertensive chronic kidney disease with stage 1 through stage 4 chronic kidney disease, or unspecified chronic kidney disease; N18.30 Chronic kidney disease, stage 3 unspecified; I25.10 Atherosclerotic heart disease of native coronary artery without angina pectoris; I25.2 Old myocardial infarction; Z20.822 Contact with and (suspected) exposure to COVID-19
CPT/HCPCS: 36415; 70450; 70496; 71045; 72125; 80053; 82550; 82553; 83735; 84484; 85025; 85610; 85730; 99284; J2405; J7040; Q9967; U0002